=== PATIENT | male | born 1945 ===

== ENCOUNTER 2016-10-05 02:14 | Observation (INO) | payer MEDICARE, OTHER ==
[~2016-10-05] VITALS: Ht 182.9 cm; Wt 134.5 kg
--- NOTE | ~2016-10-05 | CON ---
PATIENT'S NAME: LIA CERNA [facility] AGE: 71 Y [address] ROOM: [place] [address] [place] [facility] [place]: 10/05/2016 Consultation DISCHARGE DATE: FAMILY PHYSICIAN: Dirk Bess MD ATTENDING PHYSICIAN: Dirk Bess DATE OF CONSULTATION: 10/05/2016 REFERRING PHYSICIAN: Jermaine Ewing MD REASON FOR CONSULTATION: Suspected choledocholithiasis. HISTORY OF PRESENT ILLNESS: This is a very pleasant, 71-year-old male, who was admitted through emergency room visit early this morning. The patient states yesterday at 7:00 p.m., he began having severe upper abdominal pain that progressively worsened throughout the night, warranting an emergency room visit. The patient denied any radiation. No associated fever or chills. No nausea vomiting, as well. At that time, he was passing a small amount of gas but not much. He recently underwent a right inguinal hernia repair on 09/29/[address] Patel. On evaluation in the emergency room, the patient did undergo an abdominal ultrasound that did show cholelithiasis, findings of acute cholecystitis as well as distended common bile duct measuring at 9 mm with no definitive choledocholithiasis seen. At that time, he also went underwent a CT abdomen and pelvis that did show some mild intrahepatic biliary dilation cholelithiasis though no high attenuation material is identified in the common bile duct study. On admission, the patient's liver enzymes are within normal limits at this time. The patient currently denies any chest pain, chest pressure, shortness of breath, fever, or chills. He continues to having abdominal pain though does state that the abdominal pain has slightly improved. PAST MEDICAL HISTORY: 1. History of prostate cancer. 2. Hypercholesterolemia. 3. Arthritis. 4. PTSD. 5. Anxiety. 6. Recent right inguinal hernia repair. PAST SURGICAL HISTORY: 1. Left total knee arthroplasty. 2. Right inguinal herniography. 3. Cystoscopy. 4. Hyperbaric oxygen therapy. PATIENT'S NAME: LIA CERNA [facility] AGE: 71 Y [address] ROOM: [address] [address] [place]: [facility] [place]: 10/05/2016 Consultation DISCHARGE DATE: FAMILY PHYSICIAN: Dirk Bess MD ATTENDING PHYSICIAN: Dirk Bess 5. Radiation therapy. 6. Prostatectomy. 7. He denies any history of upper endoscopy. SOCIAL HISTORY: The patient denies any tobacco use. Drinks alcohol on an occasional basis. He denies any illicit drug use. FAMILY HISTORY: The patient's father had heart disease. The patient's mother had congestive heart failure. The patient's brother had diabetes and heart disease as well. The patient's sister had breast cancer. He denies any known gastrointestinal diseases or cancers. ALLERGIES: NO KNOWN MEDICATION ALLERGIES. CURRENT MEDICATIONS: Please refer to the medication administration record. REVIEW OF SYSTEMS: All point review of systems was completed. All were negative except for those identified in the history of present illness. PHYSICAL EXAMINATION: GENERAL: A very pleasant, 71-year-old male, lying in bed, who appears to be in no acute distress. VITAL SIGNS: Temperature 97.5, pulse of 75, respirations of 16, blood pressure 171/82, oxygen saturation is 96% on room air. SKIN: [place], warm, and dry. No jaundice. No jaundice. HEENT: Head is normocephalic and atraumatic. Pupils equal, round, and reactive to light. Sclerae are clear. Nonicteric. Oral mucosa is pink and moist. No thyromegaly. NECK: Soft and supple. CARDIOVASCULAR: Regular. Normal S1 and S2. RESPIRATORY: Respirations even and unlabored. LUNGS: Clear to auscultation. ABDOMEN: Soft, round, tender throughout his upper abdomen including mid epigastric area. No rebound, rigidity, or guarding noted. Bowel sounds positive x4 quadrants. MUSCULOSKELETAL: No muscle weakness or atrophy. EXTREMITIES: No clubbing, cyanosis, or edema. NEUROLOGIC: Grossly nonfocal. LABS AND DIAGNOSTICS: PATIENT'S NAME: LIA CERNA [facility] AGE: 71 Y [address] ROOM: [place] [address] [place]: [facility] [place]: 10/05/2016 Consultation DISCHARGE DATE: FAMILY PHYSICIAN: Dirk Bess MD ATTENDING PHYSICIAN: Dirk Bess White blood cell count of 14.5, hemoglobin of 16.9, hematocrit of 50.4, platelet of 339. Chemistry panel includes a glucose of 139, BUN of 21, creatinine 0.9. Sodium 138, potassium of 4.4, chloride 106, CO2 of 23, and albumin of 3.7. AST of 34, ALT of 62, alkaline phosphatase of 106. Total bilirubin 0.6, amylase 51, lipase of 344, CRP is 1.530. DIAGNOSTICS: As above. ASSESSMENT AND PLAN: Again, this is a very pleasant, 71-year-old male, who was admitted with severe bilateral upper quadrant abdominal pain and admitted for suspected choledocholithiasis. At this time, we will go forth with endoscopic ultrasound for further evaluation of the mild intrahepatic biliary dilation seen on the CT scan Following endoscopic ultrasound, possible ERCP will be completed for stone removal with possible stent placement if warranted at that time. We will obtain a PT and INR in preparation for the procedure. Further recommendations to be given status post endoscopic ultrasound and an ERCP. Thank you for this consult. KITTY GALLEGO APRN FOR DARYN ELIAS MD MMF/modl /[id number] d: 10/05/16 1156 t: 10/11/16 1514, CONSULTATION REPORT
--- NOTE | ~2016-10-05 | DS ---
PATIENT'S NAME: LIA CERNA [facility] AGE: 71 Y [address] ROOM: [place] [address] [place] [facility] [place]: 10/05/2016 Discharge Summary DISCHARGE DATE: 10/07/2016 FAMILY PHYSICIAN: Dirk Bess MD ATTENDING PHYSICIAN: Dirk Bess DISCHARGE DIAGNOSES: 1. Cholelithiasis. 2. Prediabetes. 3. Hyperlipidemia. 4. History of prostate cancer. CONSULTS DURING ADMISSION: Dr. Patel of general surgery and Gastroenterology PROCEDURES DURING ADMISSION: Cholecystectomy on October 07, 2015 and ERCP. HOSPITAL COURSE: The patient is a 71-year-old male who presented with right upper quadrant abdominal pain, who was found on ultrasound to have cholelithiasis. The patient was made n.p.o., started IV fluids, and Dr. Patel was consulted and as was Gastroenterology. Gastroenterology did an ERCP which found there to be no obstructing stones, so the patient was later taken for cholecystectomy laparoscopically. The patient did well. Upon day of discharge, he was ambulating without difficulty, having flatus, tolerating diet, and pain was controlled on oral medications. DISCHARGE CONDITION: Stable. DISPOSITION: Home. DISCHARGE MEDICATIONS: Please see list. DISCHARGE INSTRUCTIONS: The patient is to do activity as directed by Surgery. He is to follow up with surgery in approximately [address] Bess in approximately 2 weeks. MD JERZY SMITH/bethany /[id number] d: 10/07/160 t: 10/17/162121, DISCHARGE SUMMARY
--- NOTE | ~2016-10-05 | HP ---
PATIENT'S NAME: LIA CERNA [facility] AGE: 71 Y [address] ROOM: [place] [address] LOCATION: [place] ADMIT DATE: 10/05/2016 History & Physical DISCHARGE DATE: FAMILY PHYSICIAN: Dirk Bess MD ATTENDING PHYSICIAN: Dirk Bess DATE OF SERVICE: CHIEF COMPLAINT: Abdominal pain. HISTORY OF PRESENT ILLNESS: The patient is a 71-year-old male who recently had an inguinal hernia surgery who presented with right upper quadrant abdominal pain. The patient was found on ultrasound to have cholelithiasis and a mild elevated white blood cell count. He denies any fevers, chills, chest pain, shortness of breath, diarrhea, constipation, hematochezia, or melena. PAST MEDICAL HISTORY: 1. Prediabetes. 2. Hyperlipidemia. 3. History of prostate cancer. 4. History of right inguinal hernia. 5. Contact dermatitis. PAST SURGICAL HISTORY: 1. Inguinal hernia repair. 2. Prostatectomy. 3. Left knee replacement. 4. Colonoscopy. ALLERGIES: NO KNOWN MEDICAL ALLERGIES. CURRENT MEDICATIONS: Please see list. SOCIAL HISTORY: The patient is a former tobacco user but no longer smokes. FAMILY HISTORY: Significant for breast cancer in a sister, GERD, diabetes in a brother, and heart disease in a brother and father. REVIEW OF SYSTEMS: PATIENT'S NAME: LIA CERNA [facility] AGE: 71 Y [address] ROOM: [place] [address] LOCATION: [place] ADMIT DATE: 10/05/2016 History & Physical DISCHARGE DATE: FAMILY PHYSICIAN: Dirk Bess MD ATTENDING PHYSICIAN: Dirk Bess A complete review of systems obtained, pertinent positives and negatives as mentioned in the HPI. OBJECTIVE: VITAL SIGNS: Temperature 97.5, pulse 75, respirations 16, blood pressure 171/82. GENERAL: The patient is alert and oriented. Appears in no acute distress. HEENT: Head: Normocephalic, atraumatic. Eyes, conjunctivae clear. No scleral icterus. Mouth: Oropharynx grossly moist and pink. No lesions or exudates. NECK: Supple. No lymphadenopathy or thyromegaly. HEART: Regular rate rhythm. No rubs, murmurs, or gallops. LUNGS: Clear to auscultation bilaterally. ABDOMEN: Bowel sounds present. Tender right upper quadrant. EXTREMITIES: No cyanosis, clubbing, or edema. VASCULAR: Pulses +2 and equal bilaterally. SKIN: No rash or lesions. LYMPHATICS: No lymphadenopathy. NEUROLOGIC: Cranial nerves II through XII grossly intact. LABS: White blood cell count is 14.5, hemoglobin of 16.7. Lipase was normal at 344 but the sugar was elevated at 139. Ultrasound showed gallstones and dilated common bile duct. ASSESSMENT: 1. Cholelithiasis. 2. Pre-diabetes. 3. Hyperlipidemia. 4. History of prostate cancer. PLAN: At this time, the patient is n.p.o. We will work on pain control with IV morphine. Gastroenterology has been consulted who will do an ERCP this morning. We will continue to watch his sugars and get an A1c. MD JERZY SMITH/bethany /[id number] D: 446 T: HISTORY & PHYSICAL
--- NOTE | ~2016-10-05 | CON ---
PATIENT'S NAME: LIA CERNA [facility] AGE: 71 Y [address] ROOM: [address] [address] [place] [facility] [place]: 10/05/2016 Consultation DISCHARGE DATE: FAMILY PHYSICIAN: Dirk Bess MD ATTENDING PHYSICIAN: Dirk Bess DATE OF CONSULTATION: 10/05/2016 REASON FOR CONSULTATION: Cholelithiasis. HISTORY OF PRESENT ILLNESS: Lia Cerna is a 71-year-old gentleman who is postop day 5 from a right inguinal hernia repair with Dr. Patel. He states that he was getting along okay at home until after eating a light supper last evening he developed pain across his upper abdomen along with belching and nausea around 7 p.m. He tried 7UP and Tums along with Gas-X. At 2:00 a.m., he decided that he needed to come in and be evaluated due to the severity of his symptoms. His evaluation included liver function tests that showed total bilirubin of 0.6, alkaline phosphatase 106, AST 34, ALT 62, amylase 51, and lipase 344. CBC showed white blood cell count of 14.5. The patient had an abdominal ultrasound done and it showed mobile echogenic foci and the gallbladder showed multiple gallstones. No gallbladder wall thickening or pericholecystic fluid was seen. Negative Wayne sign. The common bile duct measured 9 mm. No echogenic material was identified in the common bile duct. A CT of the abdomen and pelvis was done, which showed multiple small gallstones in the dependent portion of the gallbladder with no gallbladder wall thickening or pericholecystic fluid. No focal liver lesions were identified. There was mild intrahepatic biliary dilatation with common bile duct measuring about 9 mm. No high attenuation material was identified in the common bile duct. No choledocholithiasis was identified. There was extensive streaky increased attenuation of the fatty tissues in the right inguinal ring extending inferiorly to the spermatic canal, which would be consistent with recent right inguinal hernia repair. The patient was admitted under the care of Dr. Bess and Gastroenterology was consulted. They proceeded with an ERCP today. No stones were seen in the common bile duct, but a slight amount of sludge was extracted. A sphincterotomy with balloon sweep was performed. A stent was not placed. General Surgery was consulted this evening for consideration of laparoscopic cholecystectomy. At this time, the patient states that he does not have any pain or nausea. He states that he feels much better since having the ERCP done. ALLERGIES: NONE. PATIENT'S NAME: LIA CERNA [facility] AGE: 71 Y [address] ROOM: [place] [address] [place] [facility] [place]: 10/05/2016 Consultation DISCHARGE DATE: FAMILY PHYSICIAN: Dirk Bess MD ATTENDING PHYSICIAN: Dirk Bess MEDICATIONS: At home include, 1. Zyrtec 1 tablet p.o. daily. 2. Multivitamin 1 tablet p.o. daily. 3. Ascorbic acid 500 mg p.o. daily. ILLNESSES: History of prostate cancer, prediabetes, hyperlipidemia, and contact dermatitis. OPERATIONS: Right inguinal hernia repair on September 19, 2016, prostatectomy, left knee replacement, and colonoscopy. SOCIAL HISTORY: The patient is . [place]. He does not smoke at this time. He occasionally consumes alcohol. FAMILY HISTORY: Breast cancer in a sister, diabetes in a brother, and heart disease in brother and father. REVIEW OF SYSTEMS: The patient denies any cough at this time. He did have a bad cough a few months ago, but that has resolved. No chest pain, no shortness of breath. His bowels have been working normally with no blood in his stool. His urine stream had been fine. He denies any prior episodes with indigestion or abdominal pain. PHYSICAL EXAMINATION: VITAL SIGNS: Temperature 97.5, blood pressure 164/81, pulse 81, and respirations 16. GENERAL: Obese, 71-year-old male who is alert, oriented, pleasant, cooperative. EYES, EARS, NOSE, AND THROAT: Grossly normal. LUNGS: Clear. HEART: Regular. ABDOMEN: Soft, nontender to palpation. He has an incision in the right lower quadrant, which is intact with no erythema or complications noted. LABORATORY WORK: Again, CBC shows white blood cell count 14.5, hemoglobin 16.9, hematocrit 50.4, and platelets 339. CMP was essentially normal. Amylase and lipase normal. PATIENT'S NAME: LIA CERNA [facility] AGE: 71 Y [address] ROOM: [place] [address] [place] [facility] [place]: 10/05/2016 Consultation DISCHARGE DATE: FAMILY PHYSICIAN: Dirk Bess MD ATTENDING PHYSICIAN: Dirk Bess ASSESSMENT: A 71-year-old male with, 1. Cholelithiasis and biliary colic. 2. Status post endoscopic retrograde cholangiopancreatography with sludge removed from the common bile duct, but no definite choledocholithiasis. 3. Status post right inguinal hernia repair, postop day 6. 4. History of prostate cancer. PLAN: I discussed the diagnosis of cholelithiasis and biliary colic with the patient and his family. I discussed recommendations for removal of the gallbladder. I discussed risks of bleeding, infection, injury to other structures, heart problems, lung problems, common bile duct injury, bile leak, etc. I discussed that this would require a general anesthetic and that he potentially could go home later in the day versus the following day. Given the fact that he has had the recent inguinal hernia repair, his lifting restrictions would not change. His diet will be advanced as tolerated following the procedure. The patient's questions and concerns were addressed. We have scheduled him for a laparoscopic cholecystectomy tomorrow morning. Dr. Patel will see the patient in preop, will review over indications, risks, benefits, and alternatives, and plan to proceed from there as indicated. Dr. Patel is available for supervision. THANIA ERICKSON PA-C FOR MD MASOOD ROMANK/bethayn /[id number] d: 10/06/16 0019 t: 10/26/16 1736, CONSULTATION REPORT
--- NOTE | ~2016-10-05 | ER ---
PATIENT'S NAME: LIA CERNA [facility] AGE: 71 Y [address] ROOM: [place] [address] [place] [facility] [place]MIT DATE: 10/05/2016 ER/Outpatient Report DISCHARGE DATE: FAMILY PHYSICIAN: Dirk Bess MD ATTENDING PHYSICIAN: Dirk Bess Admission date and time documented on the medical record. I saw the patient at 0225 hours. CHIEF COMPLAINT: Upper abdominal pain. HISTORY: This patient is a 71-year-old male who presented to the emergency room with severe upper abdominal pain. No radiation through to his back. No chest pain. No shortness of breath. He is passing a little gas, but not much. He had a right inguinal hernia, operative procedure on of this month or this past . No nausea, vomiting, diarrhea. No urinary frequency, urgency, or dysuria. No back pain. No lightheadedness, dizziness, syncope, or near syncope. No recent coughs, colds, flus, fever, chills, or sweats. No headache, eyes, ears, nose, throat, neck or spine pain. No fall or trauma. No joint or muscle swelling, redness, or pain. No skin eruptions or rash. No history of neuro changes, psych issues, or endocrine problems. HOME MEDICATIONS: None. ALLERGIES: NONE. SOCIAL HISTORY: Nonsmoker. Occasional intake of alcohol. SIGNIFICANT PAST MEDICAL HISTORY: Prostate cancer, dyslipidemia, degenerative joint disease, degenerative osteoarthritis. OPERATIONS: Left total knee arthroplasty, right inguinal herniorrhaphy, cystoscopy, hyperbaric oxygen therapy, radiation therapy, prostatectomy. REVIEW OF SYSTEMS: All systems reviewed by me are negative with the exception of those discussed in the history of the present illness. PATIENT'S NAME: LIA CERNA [facility] AGE: 71 Y [address] ROOM: [address] [address] [place] [facility] [place]MIT DATE: 10/05/2016 ER/Outpatient Report DISCHARGE DATE: FAMILY PHYSICIAN: Dirk Bess MD ATTENDING PHYSICIAN: Dirk Bess PHYSICAL EXAMINATION: VITAL SIGNS: Temperature 96.8 tympanic, pulse 66, respirations 16, blood pressure 175/104, O2 saturation on room air is 99%. HEAD: Normocephalic. EYES, EARS, NOSE, THROAT: Clear. Mucous membranes moist. Teeth, jaw intact. NECK: No nuchal rigidity. No thyromegaly or cervical adenopathy. No tenderness. SPINE: Negative. LUNGS: Clear. HEART: Regular. Pulses are palpable. No chest wall or ribcage pain to palpation. ABDOMEN: Nondistended. Tender at the upper abdomen, but no true guarding or rigidity. No rebound tenderness. Bowel tones present. No organomegaly or abnormal mass palpable. No CVA tenderness. EXTREMITIES: No peripheral edema, cyanosis or deformity. Neurovascularly intact. SKIN: Clear. No skin eruptions or rash. LABORATORY DATA: Procalcitonin was less than 0.05. Lactate was 1.9. CMS was normal except for an elevated glucose of 139. Amylase and lipase were normal. CRP was 1.53. White count 29307, 81 segs, 11 lymphs, 6 monos, 2 eos, 1 baso. Hemoglobin 16.9, hematocrit 50.4, platelet count is 339,000. IMAGING: CT scan of the abdomen and pelvis showed cholelithiasis with some new minor intrahepatic bile duct dilatation. CT scan was read by Radiology. There was no free air or free fluid. Normal appendix. No solid organ abnormalities. CT scan was read by Radiology, see dictated transcribed report. I did go ahead and do an ultrasound of the gallbladder that showed cholelithiasis. He had a 9 mm dilated common duct. No stone was visualized. No pericholecystic fluid. No thickened gallbladder wall or evidence of acute cholecystitis. EMERGENCY DEPARTMENT COURSE: I did give the patient IV normal saline, fluids IV, Dilaudid for pain, IV Zofran for nausea and vomiting. IMPRESSION: 1. Choledocholithiasis with dilated common duct at 9 mm and gallstones in the gallbladder. There was no gallbladder wall thickening or pericholecystic fluid consistent with no evidence of acute cholecystitis. The patient does have mid upper abdominal pain accompanied with the choledocholithiasis. 2. Dyslipidemia. 3. History of prostate cancer. PATIENT'S NAME: LIA CERNA [facility] AGE: 71 Y [address] ROOM: [place] [address] [place] [facility] [place]MIT DATE: 10/05/2016 ER/Outpatient Report DISCHARGE DATE: FAMILY PHYSICIAN: Dirk Bess MD ATTENDING PHYSICIAN: Dirk Bess 4. Degenerative osteoarthritis with degenerative joint disease. PLAN: Discussed the patient with Dr. Ewing for Dr. Bess. We will admit the patient to the hospital. The patient will most likely need a GI consult with ERCP and then most likely a cholecystectomy. Discussion ensued with the patient concerning my findings and recommendations, he understands. MD TRACY JOHNSON/modl /[id number] d: 10/05/16740 t: 10/05/16 182, OUTPATIENT REPORT
--- NOTE | ~2016-10-05 | OR ---
PATIENT'S NAME: LIA CERNA [facility] AGE: 71 Y [address] ROOM: [address] [address] LOCATION: [facility] ADMIT DATE: 10/05/2016 OR/Procedure Report DISCHARGE DATE: FAMILY PHYSICIAN: Dirk Bess MD ATTENDING PHYSICIAN: Dirk Bess SURGEON: Tan Patel MD GREENHOUSE STAFF: David Holder PA-C. DATE OF PROCEDURE: 10/06/2016 PREOPERATIVE DIAGNOSES: 1. Cholecystitis and cholelithiasis. 2. Normal common bile duct. POSTOPERATIVE DIAGNOSES: 1. Cholecystitis and cholelithiasis. 2. Normal common bile duct. PROCEDURE PERFORMED: Laparoscopic cholecystectomy. ANESTHESIA: General with 25 mL 0.5% Marcaine. SPECIMEN: Gallbladder with acute edema with gallstones. ESTIMATED BLOOD LOSS: Less than 25 mL. INDICATIONS: The patient is a 71-year-old gentleman who is actually one week status post right inguinal hernia repair. 48 hours ago, he developed increasing abdominal pain and bloating, but no pain in his hernia site. No problem with flatus or bowel movement. He subsequently went to the emergency room for evaluation and was found to have dilated common bile duct and cholelithiasis; and was admitted to the hospital with acute cholecystitis. ERCP showed no residual stones in the duct. He had no evidence of pancreatitis and we recommended that he have his gallbladder removed. DESCRIPTION OF PROCEDURE: After informed consent, the patient was taken to the operating room, and after general endotracheal anesthesia, the patient's abdomen was prepped and draped into a sterile field. A time-out performed. We confirmed the patient and planned procedure. Local anesthetic infiltrated prior to each incision. The first one made below the umbilicus, carried down to identify the anterior fascia through which a Veress needle inserted, pneumoperitoneum created. Trocar and laparoscope inserted under direct vision. The remaining trocars were placed. The gallbladder was very edematous. We had aspirated 60 mL of bile out of it in order to grab it, and the wall had lot of edema and some thickening. We traced it down to the infundibulum, stripped down the adhesions, and the very edematous PATIENT'S NAME: LIA CERNA [facility] AGE: 71 Y [address] ROOM: [facility] [place], [place] [address] LOCATION: [facility] ADMIT DATE: 10/05/2016 OR/Procedure Report DISCHARGE DATE: FAMILY PHYSICIAN: Dirk Bess MD ATTENDING PHYSICIAN: Dirk Bess hepatoduodenal ligament was stripped. We could see impacted stones in the infundibulum and we isolated out a small cystic duct entering the gallbladder. We also isolated the lymphatic channel and the cystic artery; all in clear view entering the gallbladder. Each structure was individually clipped x3 and divided. The gallbladder was removed from liver bed without difficulty. It was placed into EndoCatch bag and brought out through the umbilical fascial defect. We irrigated the right upper quadrant until clear. We then used EndoStitch of 0 Vicryl to close the both midline fascia defects under direct vision due to obesity of the abdominal wall. We then released the pneumoperitoneum, closed the skin with subcuticular 4-0 Vicryl. Steri-Strips and sterile dressings applied. The patient tolerated the procedure well transferred to the recovery room in stable condition. MD HEMANT ROMAN/modl /[id number] d: 10/06/16 1459 t: 10/26/16 1733, OPERATIVE SUMMARY
[~2016-10-05 02:14] MED LIST: ALEVE220 M1 PO; MINIPRESS1 M1 PO; SEROQUEL25 MG PO; ZOLOFT50 M1 PO
[2016-10-05 02:37] LABS: BASOPHIL # 0.1 K/uL (0.0-0.2); BASOPHIL % 0.5 %; EOSINOPHIL # 0.2 K/uL (0.0-0.5); EOSINOPHIL % 1.5 %; HEMATOCRIT 50.4 % (37.0-53.0); HEMOGLOBIN 16.9 g/dL (11.0-16.0); IMMATURE GRANULOCYTE # 0.1 K/uL (0.0-0.3); IMMATURE GRANULOCYTE % 0.5 %; LYMPHOCYTE # 1.6 K/uL (0.8-4.0); LYMPHOCYTE % 11.3 %; MCH 30.3 pg (27.0-34.0); MCHC 33.5 gm/dL (32.0-36.5); MCV 90.3 fl (83.0-98.0); MONOCYTE # 0.8 K/uL (0.0-1.0); MONOCYTE % 5.7 %; MPV 10.3 fl (9.4-12.4); NEUTROPHIL # (ANC) 11.7 K/uL (1.4-9.0); NEUTROPHIL % 80.5 %; NRBC % 0 /100WBC (0-0.00); PLATELET COUNT 339 K/uL (150-450); RBC 5.58 M/uL (3.50-5.50); RDW-CV 12.2 % (11.9-14.6); WBC 14.5 K/uL (4.0-11.0)
[2016-10-05 02:55] LABS: ALBUMIN 3.7 gm/dL (3.5-5.0); ALK PHOS 106 IU/L (33-138); ALT 62 IU/L (12-78); ANION GAP 13.4 (10.0-19.0); AST 34 IU/L (10-40); BLOOD UREA NITROGEN 21 mg/dL (6-24); CALCIUM 9.5 mg/dL (8.5-10.5); CHLORIDE 106 mMol/L (96-110); CO2 23 mMol/L (22-32); CREATININE 0.9 mg/dL (0.6-1.3); ESTIMATED GFR (MDRD EQUATION) > 60; POTASSIUM 4.4 mMol/L (3.7-5.1); SODIUM 138 mMol/L (135-145); TOTAL BILIRUBIN 0.6 mg/dL (0.0-1.5); TOTAL PROTEIN 8.3 g/dL (6.0-8.4)
[2016-10-05] MEDS ORDERED: DAILY MULTIPLE1 EAC1 PO (05:51)
[2016-10-05] MEDS ORDERED: ZYRTEC10 MG PO (05:51)
[2016-10-05] MEDS ORDERED: ASCORBIC ACID500 MG PO (05:52)
--- NOTE | 2016-10-05 06:47 | NUR ---
Significant Event: Patient came into Er around 0215 with abominal cramping. Has been having decreased appetite. Ultra sound and CT done comfirming gallstones. History of prostate CA, L) TKA and high cholesterol. Inguinal hernia repair on 09/29/16. Incision to R) groin. IV to R) AC. NPO and GI consult this AM. Vitals stable and on room air. Follow up:
[2016-10-05 11:10] LABS: INR - (THERAPEUTIC) 0.99 (0.92-1.07); PROTIME 10.4 SECONDS (9.8-11.4)
--- NOTE | 2016-10-05 17:00 | NUR ---
Patient is alert and oriented, slightly hypertensive at times. Indepedent. IV to R) AC is saline locked. Had an ERCP today, found no stones but did find sludge. Dilated the duct and removed the sludge. Returned from [facility] at 1445 with no pain. Clear liquid diet. Had 2 BMs this shift. Right hernia repair about a week ago. Continue to monitor for pain.
--- NOTE | 2016-10-06 05:29 | NUR ---
Significant Event: Patient alert and oriented. Up ad carolee. VSS on room air. Denies pain. Voids without difficulity. Plans for lap bar today. NPO since midnight. Pleasant and cooperative with cares. Follow up: surgery
[2016-10-06 05:50] LABS: BASOPHIL % 0.1 %; EOSINOPHIL # 0.1 K/uL (0.0-0.5); EOSINOPHIL % 0.4 %; HEMATOCRIT 44.5 % (37.0-53.0); HEMOGLOBIN 14.7 g/dL (11.0-16.0); IMMATURE GRANULOCYTE # 0.1 K/uL (0.0-0.3); IMMATURE GRANULOCYTE % 0.4 %; LYMPHOCYTE # 1.5 K/uL (0.8-4.0); LYMPHOCYTE % 9.6 %; MCH 30.3 pg (27.0-34.0); MCV 91.8 fl (83.0-98.0); MONOCYTE # 1.5 K/uL (0.0-1.0); MONOCYTE % 9.2 %; MPV 10.6 fl (9.4-12.4); NEUTROPHIL % 80.3 %; NRBC % 0 /100WBC (0-0.00); PLATELET COUNT 304 K/uL (150-450); RBC 4.85 M/uL (3.50-5.50); RDW-CV 12.5 % (11.9-14.6)
[2016-10-06 05:51] LABS: WBC 16.1 K/uL (4.0-11.0)
[2016-10-06 06:07] LABS: ALK PHOS 96 IU/L (33-138); ALT 51 IU/L (12-78); ANION GAP 12.4 (10.0-19.0); AST 26 IU/L (10-40); BLOOD UREA NITROGEN 15 mg/dL (6-24); CALCIUM 8.7 mg/dL (8.5-10.5); CHLORIDE 106 mMol/L (96-110); CO2 26 mMol/L (22-32); CREATININE 0.9 mg/dL (0.6-1.3); ESTIMATED GFR (MDRD EQUATION) > 60; POTASSIUM 4.4 mMol/L (3.7-5.1); SODIUM 140 mMol/L (135-145); TOTAL PROTEIN 7.3 g/dL (6.0-8.4)
[2016-10-06 06:08] LABS: TOTAL BILIRUBIN 0.9 mg/dL (0.0-1.5)
--- NOTE | 2016-10-06 11:11 | NUR ---
A - PATIENT SCREENED FOR MST. 652# NOTED. SUSPECT ERROR, MIGHT BE 326# INSTEAD. NOT ABLE TO CLARIFY THIS W/ PT D/T HAVING SURGERY AT THIS TIME. NOT ABLE TO INTERVIEW, DEFER NFPE. PER RECORD, LAST WEIGHT ON 10/19/15 WAS 291#. LAP PHIL TODAY PER SHIFT REPORT. RECENT HERNIA REPAIR 09/29. ERCP 10/05, NO GALLSTONE FOUND BUT SLUDGE. HT: 182.88 CM, WT: ?326#, BMI: ?44.3, IBW: 80.9 KG, %IBW: ?183% LABS: A1C 6%, CRP 1.53, GLU 115, ALB 3.0. MEDS: MVI, VIT C, ZOFRAN. DIET: NPO FOR SURGERY. WAS ON CL YESTERDAY. PER H&P, POOR APPETITE RECENTLY D/T ABD PAIN. EST NEEDS: 4245-1755 KCAL (25-30 KCAL/KG IBW), 81-97 GRAMS PROTEIN (1-1.2 GRAMS/KG IBW), FLUID NEEDS: 1ML/KCAL D - INADEQUATE ORAL INTAKE RELATED TO DECREASED APPETITE SECONDARY TO ALTERED GI FUNCTION EVIDENCED BY POOR APPETITE PER H&P. I - WILL TRIAL ENSURE ENLIVE BID ONCE DIET ADVANCES. M/E - GOAL: ADVANCE DIET TOLERATED POST SURGERY AND ABLE TO TOLERATE >50% OF MEALS AND AT LEAST ONE ORAL SUPPLEMENT PER DAY IN 5-7 DAYS.
--- NOTE | 2016-10-06 17:54 | NUR ---
Patient is alert and oriented, VSS, on room air. Independent in room. IV to R)AC is saline locked. Went to surgery around 0730 and returned around 1215. Regular diet tonight for supper. Ambulated in the halls by himself. Stab sites x4, upper midline one has bloody drainage. Possibly home today.
--- NOTE | 2016-10-07 04:57 | NUR ---
Significant Event: Pt alert and oriented. Up ad carolee in room and ambulated in jordan x 2. Refused foot pumps and bed alarm. Gave [place] x 1 around midnight. Tolerated regular diet for supper. Plan to discharge today. Follow up:
--- NOTE | 2016-10-07 11:55 | NUR ---
DISCHARGE: Pt. was explained discharge instructions and lap bar d/c instructions. No new medications ordered. Verbalized understanding, no questions or concerns. Left with all belongings and prescriptions. IV removed by primary nurse. Taken to front door by aide and driven home by friend.
== END 2016-10-07 11:55 | disposition disaster alternative care site (69) ==
LOC: GMED 02:14 → GMSU 05:48
PROVIDERS: Emergency Medicine; Physician Assistant; Registered Nurse; ADMIT Family Medicine
DX: K80.10 Calculus of gallbladder with chronic cholecystitis without obstruction (principal); E78.5 Hyperlipidemia, unspecified; R73.03 Prediabetes; M19.90 Unspecified osteoarthritis, unspecified site; F43.10 Post-traumatic stress disorder, unspecified; Z87.891 Personal history of nicotine dependence; Z85.46 Personal history of malignant neoplasm of prostate; Z98.890 Other specified postprocedural states; Z96.652 Presence of left artificial knee joint; Z79.899 Other long term (current) drug therapy
CPT/HCPCS: C1769; G0378; J0690; J0694; J1100; J1170; J1610; J2250; J2270; J2405; J3010; J7030; J7120; Q9967

== ENCOUNTER 2016-11-30 17:47 | Emergency (ER) | payer MEDICARE, OTHER ==
--- NOTE | ~2016-11-30 | ER ---
PATIENT'S NAME: LIA CERNA [facility] AGE: 71 Y [address] ROOM: [place] [address] LOCATION: ED ADMIT DATE: 11/30/2016 ER/Outpatient Report DISCHARGE DATE: 11/30/2016 FAMILY PHYSICIAN: Dirk Bess MD ATTENDING PHYSICIAN: Alexander Lee Time of Arrival: 1843 hours. Time of Evaluation: 1848 hours. CHIEF COMPLAINT: Chills, shaking. HISTORY OF PRESENT ILLNESS: The patient is a 71-year-old male, who presents to the emergency department today with a chief complaint of chills and shaking. He reports this started about 10 days prior to arrival. He reports he has not been feeling well. He reports joint pain, increased fatigue. The patient complains of mild headache, 2/10 in severity, decreased appetite. He saw Dr. Bess on Monday. He has gotten shots of antibiotics as well as doxycycline. He did have some upper abdominal pain, lower chest pain for the past 2 days. He reports some subjective fevers and chills. No nausea or vomiting. No diarrhea or constipation. No lower abdominal pain. No urinary symptoms. PAST MEDICAL HISTORY: Prostate cancer, PTSD, prediabetes, dyslipidemia, contact dermatitis. PAST SURGICAL HISTORY: Right inguinal hernia, prostatectomy, left knee replacement, colonoscopy. SOCIAL HISTORY: The patient denies any tobacco, alcohol, or illicit drug use. ALLERGIES: NO KNOWN DRUG ALLERGIES. MEDICATIONS: Please see list. PRIMARY CARE DOCTOR: Dr. Bess. REVIEW OF SYSTEMS: All systems are reviewed by myself and are negative with the exception of those discussed in the HPI and past medical history. PATIENT'S NAME: LIA CERNA [facility] AGE: 71 Y [address] ROOM: [place] [address] LOCATION: ED ADMIT DATE: 11/30/2016 ER/Outpatient Report DISCHARGE DATE: 11/30/2016 FAMILY PHYSICIAN: Dirk Bess MD ATTENDING PHYSICIAN: Alexander Lee PHYSICAL EXAMINATION: VITAL SIGNS: Weight 131.9 kg, blood pressure 130/61, pulse 89, respiratory rate 18, temperature 99.0, oxygen saturation 91% on room air. GENERAL: The patient is a 71-year-old male, who appears stated age, in no acute distress. HEENT: Head: Normocephalic, atraumatic. Pupils are equal, round, and reactive to light. Extraocular motions are intact. Nares are patent bilaterally. TMs are clear. Oropharynx is clear. NECK: Supple. There is no nuchal rigidity. CARDIOVASCULAR: Regular rate and rhythm. No murmurs, rubs, or gallops. LUNGS: Clear to auscultation bilaterally. No wheezes, rales, or rhonchi. ABDOMEN: Soft, nontender, and nondistended. No rebound, rigidity, or guarding. Positive bowel sounds. MUSCULOSKELETAL: The patient moves all 4 extremities. SKIN: Warm and dry. There are no rashes or lesions noted. LABORATORY DATA AND X-RAYS: Two-view chest x-ray shows no acute process. EKG is obtained, is interpreted by myself, shows sinus rhythm with a rate of 90, left axis deviation, normal interval. No ST elevation, ST depression, or T-wave inversions. CMP is unremarkable. Procalcitonin is 0.17. ProBNP is 301. Urinalysis shows 30 protein, 10 blood, otherwise negative. Lactate is 1.6. Venous blood gas 7.43, 46, 39, 32, 5.3. CBC: White blood cell count 16.6, platelets 466, ANC is 12.4. Alkaline phosphatase 164, ALT is 99, ALT is 87. Magnesium is normal. Cardiac enzymes normal. Coags are normal. IMPRESSION: 1. Acute febrile illness. 2. Chills. 3. Elevated liver enzymes. 4. Leukocytosis. 5. Initial visit. EMERGENCY DEPARTMENT COURSE: The patient was brought back to the examination room. Seen and evaluated by myself. An IV is established. The patient was given a liter of normal saline IV. I have discussed results with the patient. He does report he is feeling improved at this time. His reports he has good color. I have discussed I would like him to follow up with Dr. Bess in 1 to 2 days for re- evaluation. I have discussed return to care instructions including worsening symptoms or any other concerns to return to the emergency department as soon as possible. He is to continue taking his doxycycline. The patient is agreeable without further questions at this time. DISPOSITION,: PATIENT'S NAME: LIA CERNA [facility] AGE: 71 Y [address] ROOM: [place], [place] [address] LOCATION: [facility] ADMIT DATE: 11/30/2016 ER/Outpatient Report DISCHARGE DATE: 11/30/2016 FAMILY PHYSICIAN: Dirk Bess MD ATTENDING PHYSICIAN: Alexander Lee The patient discharged home in good condition. DO SHAWN DANIELS/bethany /[id number] d: 12/01/16 0433 t: 12/01/16 0553, OUTPATIENT REPORT
[~2016-11-30 17:47] MED LIST changes: +ASCORBIC ACID500 MG PO; +DAILY MULTIPLE1 EAC1 PO; +ZYRTEC10 MG PO
[2016-11-30 19:17] LABS: BICARBONATE 30.5 mmol/L (18.0-23.0); LACTATE 1.6 mEq/L (0.50-1.60); PCO2 46 mmHg (35-45)
[2016-11-30 19:18] LABS: PO2 39 mmHg (80-90)
[2016-11-30 19:20] LABS: BASOPHIL # 0.1 K/uL (0.0-0.2); BASOPHIL % 0.4 %; EOSINOPHIL # 1.1 K/uL (0.0-0.5); EOSINOPHIL % 6.6 %; HEMATOCRIT 41.2 % (37.0-53.0); HEMOGLOBIN 13.8 g/dL (11.0-16.0); IMMATURE GRANULOCYTE # 0.1 K/uL (0.0-0.3); IMMATURE GRANULOCYTE % 0.5 %; LYMPHOCYTE # 1.2 K/uL (0.8-4.0); LYMPHOCYTE % 7.3 %; MCH 30.3 pg (27.0-34.0); MCHC 33.5 gm/dL (32.0-36.5); MCV 90.5 fl (83.0-98.0); MONOCYTE # 1.7 K/uL (0.0-1.0); MONOCYTE % 10.4 %; MPV 10.3 fl (9.4-12.4); NEUTROPHIL # (ANC) 12.4 K/uL (1.4-9.0); NEUTROPHIL % 74.8 %; NRBC % 0 /100WBC (0-0.00); RBC 4.55 M/uL (3.50-5.50); RDW-CV 12.7 % (11.9-14.6)
[2016-11-30 19:21] LABS: PLATELET COUNT 466 K/uL (150-450); WBC 16.6 K/uL (4.0-11.0)
[2016-11-30 19:32] LABS: INR - (THERAPEUTIC) 1.11 (0.92-1.07); PROTIME 11.7 SECONDS (9.8-11.4); PTT 31 SECONDS (25-32)
[2016-11-30 19:42] LABS: ALBUMIN 2.4 gm/dL (3.5-5.0); ALK PHOS 164 IU/L (33-138); ALT 87 IU/L (12-78); ANION GAP 10.8 (10.0-19.0); AST 99 IU/L (10-40); BLOOD UREA NITROGEN 15 mg/dL (6-24); CALCIUM 8.7 mg/dL (8.5-10.5); CHLORIDE 104 mMol/L (96-110); CO2 28 mMol/L (22-32); CPK 99 IU/L (35-332); CREATININE 0.9 mg/dL (0.6-1.3); MAGNESIUM 2.3 mg/dL (1.8-2.6); POTASSIUM 3.8 mMol/L (3.7-5.1); SODIUM 139 mMol/L (135-145); TOTAL PROTEIN 7.8 g/dL (6.0-8.4)
[2016-11-30 19:45] LABS: TOTAL BILIRUBIN 0.7 mg/dL (0.0-1.5)
[2016-11-30 20:58] LABS: BILIRUBIN URINE NEGATIVE (NEGATIVE); BLOOD URINE 10 /UL (NEGATIVE); COLOR URINE YELLOW (YELLOW); GLUCOSE URINE NEGATIVE (NEGATIVE); KETONE URINE NEGATIVE (NEGATIVE); LEUKOCYTES URINE NEGATIVE /UL (NEGATIVE); NITRITE URINE NEGATIVE (NEGATIVE); PROTEIN URINE 30 mg/dL (NEGATIVE); TURBIDITY URINE 1+ (CLEAR); UROBILINOGEN URINE 1 mg/dL (NORMAL)
[2016-11-30 21:13] LABS: BACTERIA URINE NEGATIVE (NEGATIVE); WBC URINE 0-2 #/HPF (NEGATIVE)
[2016-11-30 21:14] LABS: AMORPHOUS URINE 1+ (NEGATIVE)
== END 2016-11-30 21:43 | disposition disaster alternative care site (69) ==
LOC: GMED 17:47
PROVIDERS: Emergency Medicine
DX: R50.9 Fever, unspecified (principal); R79.89 Other specified abnormal findings of blood chemistry; D72.829 Elevated white blood cell count, unspecified; E78.5 Hyperlipidemia, unspecified; F43.10 Post-traumatic stress disorder, unspecified; Z96.652 Presence of left artificial knee joint; Z98.890 Other specified postprocedural states; Z90.79 Acquired absence of other genital organ(s); Z79.2 Long term (current) use of antibiotics
CPT/HCPCS: J7030

== ENCOUNTER → 2016-12-15 | Outpatient (CLI) | payer MEDICARE, OTHER | LOC: LKCL 13:37 | DX: R53.83 Other fatigue (principal); R51 Headache ==

== ENCOUNTER → 2016-12-21 | Outpatient (CLI) | payer MEDICARE, OTHER | LOC: LGSMG 17:15 | DX: R61 Generalized hyperhidrosis (principal); M25.50 Pain in unspecified joint ==